=== PATIENT | female | born 1960 | race Caucasian/White ===

== ENCOUNTER → 2018-01-22 | Day surgery (SDC) | payer MEDICARE, MEDICAID ==
[~2018-01-22] MED LIST: LIDOCAINE 1% INJ-PF (10 MG/ML) 30 ML SDV ONE
--- NOTE | 2018-01-22 14:16 | RADIOLOGY REPORT (SQ) ---
EXAM DESCRIPTION: ARTHRO SHOULDER INJECTION; FLUORO/NEEDLE PLACEMENT COMPLETED DATE/TIME: 01/22/2018 1:52 pm REASON FOR STUDY: M25.511 PAIN IN RIGHT SHOULDER M25.511 PAIN IN RIGHT SHOULDER COMPARISON: None. FLUOROSCOPY TIME: 0.3 minutes. 1 images saved to PACS. LIMITATIONS: None. PROCEDURE: Procedure, risks, benefits and alternatives explained to patient who then gave written co nsent. The right shoulder was marked and a time out was called for correct procedure verification. P osterior entry site marked using fluoroscopic guidance. Shoulder prepped and draped using sterile te chnique. Local anesthesia achieved using 1% lidocaine injection. Hypodermic needle introduced into the joint space under direct fluoroscopic visualization. Non-ionic contrast instilled to confirm intr a-articular position. Dilute gadolinium solution then injected. Needle removed and entry site covere d with sterile bandage. No immediate complications noted. TECHNIQUE: Digital images acquired during fluoroscopy and stored on PACS. Patient immediately take n to the MR suite for additional imaging. INJECTION LOCATION: Posterior right shoulder. CONTRAST TYPE AND AMOUNT: 2 mL Isovue-300 and 12 mL Prohance/Saline mixture. IMPRESSION: SUCCESSFUL NEEDLE PLACEMENT AND INJECTION FOR RIGHT SHOULDER MR ARTHROGRAM USING POSTERI OR APPROACH. COMMENT: Quality ID 145: Final reports for procedures using fluoroscopy that document radiation exp osure indices, or exposure time and number of fluorographic images (if radiation exposure indices are not available) TECHNICAL DOCUMENTATION: JOB ID: [id number] [employer]- All Rights Reserved Reading location - IP/workstation name: [email or web address]
--- NOTE | 2018-01-22 14:16 | RADIOLOGY REPORT (SQ) ---
EXAM DESCRIPTION: ARTHRO SHOULDER INJECTION; FLUORO/NEEDLE PLACEMENT COMPLETED DATE/TIME: 01/22/2018 1:52 pm REASON FOR STUDY: M25.511 PAIN IN RIGHT SHOULDER M25.511 PAIN IN RIGHT SHOULDER COMPARISON: None. FLUOROSCOPY TIME: 0.3 minutes. 1 images saved to PACS. LIMITATIONS: None. PROCEDURE: Procedure, risks, benefits and alternatives explained to patient who then gave written co nsent. The right shoulder was marked and a time out was called for correct procedure verification. P osterior entry site marked using fluoroscopic guidance. Shoulder prepped and draped using sterile te chnique. Local anesthesia achieved using 1% lidocaine injection. Hypodermic needle introduced into the joint space under direct fluoroscopic visualization. Non-ionic contrast instilled to confirm intr a-articular position. Dilute gadolinium solution then injected. Needle removed and entry site covere d with sterile bandage. No immediate complications noted. TECHNIQUE: Digital images acquired during fluoroscopy and stored on PACS. Patient immediately take n to the MR suite for additional imaging. INJECTION LOCATION: Posterior right shoulder. CONTRAST TYPE AND AMOUNT: 2 mL Isovue-300 and 12 mL Prohance/Saline mixture. IMPRESSION: SUCCESSFUL NEEDLE PLACEMENT AND INJECTION FOR RIGHT SHOULDER MR ARTHROGRAM USING POSTERI OR APPROACH. COMMENT: Quality ID 145: Final reports for procedures using fluoroscopy that document radiation exp osure indices, or exposure time and number of fluorographic images (if radiation exposure indices are not available) TECHNICAL DOCUMENTATION: JOB ID: [id number] [employer]- All Rights Reserved Reading location - IP/workstation name: [email or web address]
--- NOTE | 2018-01-22 19:57 | RADIOLOGY REPORT (SQ) ---
EXAM DESCRIPTION: MRI RT UPPER JOINT WITH COMPLETED DATE/TIME: 01/22/2018 2:26 pm REASON FOR STUDY: M25.511 PAIN IN RIGHT SHOULDER M25.511 PAIN IN RIGHT SHOULDER COMPARISON: None. TECHNIQUE: Right shoulder images acquired and stored on PACS. Oblique coronal, oblique sagittal, and axial imaging to include fat sensitive sequences as T1, water sensitive sequences as FST2/STIR, and contrast sensitive sequences as FST1. LIMITATIONS: None. FINDINGS: JOINT DISTENTION: Adequate. No loose bodies. BONE MARROW AND CORTEX: Normal allowing for postoperative artifact in the lateral humeral head. AC JOINT: Prior decompression. No subacromial compromise. GLENOHUMERAL JOINT: No focal chondral lesions appreciated. No subluxation or dislocation. ROTATOR CUFF: Limiting artifact. Irregular thinning of the cuff, infraspinatus and posterior aspect of the supraspinatus. Irregular tear is present, most of which looks interstitial. There is a compo nent of full-thickness perforation allowing contrast to extravasates into the subacromial subdeltoid bursa, however. Potential mild loss of muscle bulk in the supraspinatus. Tendinosis and potential p artial tear in the subscapularis. Prominent cystic changes in the lesser tuberosity with some associ ated spurring. LABRUM AND BICEPS LABRAL COMPLEX: No overt SLAP tear or biceps disruption/displacement. INFERIOR LABRAL COMPLEX: Generally intact. ADJACENT SOFT TISSUES: No mass or regional adenopathy detected. OTHER: No other significant finding. IMPRESSION: 1. Recurrent cuff tear. Irregular partial tear with at least some full-thickness perfor ation as above. This involves the infraspinatus and supraspinatus. Probable partial tear in the sub scapularis as well. 2. No SLAP tear or biceps pathology. TECHNICAL DOCUMENTATION: JOB ID: [id number] [employer]- All Rights Reserved Reading location - IP/workstation name: [email or web address]
== END ==
LOC: RAD 12:29
PROVIDERS: ATTEND Orthopaedic Surgery
PROC: BP08ZZZ Plain Radiography of Right Shoulder (ICD-10-PCS; principal; 2018-01-22)
DX: M25.511 Pain in right shoulder (principal)
CPT/HCPCS: 73222; 77002; 23350; A9576; J3490

== ENCOUNTER → 2018-01-22 | Outpatient (CLI) | payer MEDICARE, MEDICAID ==
--- NOTE | 2018-01-25 08:10 | WOMENS IMAGING REPORT ---
EXAM DESCRIPTION: BILAT SCREENING MAMMO W/CAD COMPLETED DATE/TIME: 01/22/2018 12:49 pm REASON FOR STUDY: SCREENING MAMMO Z12.31 ENCNTR SCREEN MAMMOGRAM FOR MALIGNANT NEOPLASM OF DOREEN COMPARISON: 04/17/2015 and 01/23/2014. TECHNIQUE: Standard craniocaudal and mediolateral oblique views of each breast recorded using [employer] acquisition. LIMITATIONS: None. FINDINGS: No masses, calcifications or architectural distortion. No areas of suspicion. Read with the assistance of CAD. .[facility] - R2 Cenova Version 1.3 .[facility] - R2 Cenova Version 1.3 .[facility] - R2 Cenova Version 2.4 .[facility] - R2 Cenova Version 2.4 .[facility] - R2 Lobby Porter Version 9.2 IMPRESSION: NORMAL MAMMOGRAM. BIRADS 1. BREAST DENSITY: b. There are scattered areas of fibroglandular density. BIRAD: 1 NEGATIVE RECOMMENDATION: ROUTINE SCREENING COMMENT: The patient has been notified of the results by letter per SA requirements. Additional no tification policies are in place for contacting patient with suspicious or incomplete findings. Quality ID #225: The [employer] recommends an annual screening mammogram for women aged 40 years or over. This facility utilizes a reminder system to ensure that all patients receive reminder letters, and/or direct phone calls for appointments. This includes reminders for routine scr eening mammograms, diagnostic mammograms, or other Breast Imaging Interventions when appropriate. Th is patient will be placed in the appropriate reminder system. The [employer] (ACR) has developed recommendations for screening MRI of the breast s in certain patient populations, to be used in conjunction with mammography. Breast MRI surveillanc e may be appropriate for women with more than 20% lifetime risk of developing breast cancer as deter mined by genetic testing, significant family history of the disease, or history of mantle radiation f or Hodgkins Disease. ACR Practice Guidelines 2008. TECHNICAL DOCUMENTATION: FINDING NUMBER: (1) ASSESSMENT: (1) JOB ID: [id number] [employer]- All Rights Reserved Reading location - IP/workstation name: [email or web address]
== END ==
LOC: WI 10:47
PROVIDERS: ATTEND Family Medicine
DX: Z12.31 Encounter for screening mammogram for malignant neoplasm of breast (principal)
CPT/HCPCS: 77067

== ENCOUNTER 2018-01-29 12:06 | Emergency (ER) | payer MEDICARE, MEDICAID ==
[2018-01-29 12:16] VITALS: BP 143/83
--- NOTE | 2018-01-29 13:52 | RADIOLOGY REPORT (SQ) ---
"EXAM DESCRIPTION: HIP RIGHT AP/LATERAL COMPLETED DATE/TIME: 01/29/2018 1:15 pm REASON FOR STUDY: pain COMPARISON: None. NUMBER OF VIEWS: Two views. TECHNIQUE: AP pelvis and additional frog-leg view of the right hip. LIMITATIONS: None. FINDINGS: MINERALIZATION: Normal. RIGHT HIP: No fracture or dislocation. No worrisome bone lesions. LEFT HIP: No fracture or dislocation. No worrisome bone lesions. PUBIS AND ISCHIUM: No fracture. PELVIS: No fracture. SACRUM: No fracture or dislocation. No worrisome bone lesions. LOWER LUMBAR SPINE: No fracture or dislocation. No worrisome bone lesions. No significant disc disea se. SOFT TISSUES: No findings. OTHER: No other significant finding. IMPRESSION: NEGATIVE STUDY OF THE RIGHT HIP. NO RADIOGRAPHIC EVIDENCE OF ACUTE INJURY. TECHNICAL DOCUMENTATION: JOB ID: [id number] [employer] | [employer]- All Rights Reserved Reading location - IP/workstation name: [facility]"
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
[2018-01-29] MEDS ORDERED: KETOROLAC TROMETHAMINE 60 MG/2 ML SDV IM ONE (14:42)
[2018-01-29] MEDS ORDERED: ONDANSETRON 4 MG TAB.RAPDIS PO ONE (14:42)
== END 2018-01-29 14:51 | disposition home or self-care (01) ==
LOC: ER 12:06
DX: M25.551 Pain in right hip (principal); R20.8 Other disturbances of skin sensation; I10 Essential (primary) hypertension
CPT/HCPCS: 99283; 96372; J1885; A9270; S0119

== ENCOUNTER 2018-03-26 08:07 | Emergency (ER) | payer MEDICARE, MEDICAID ==
[2018-03-26] MEDS ORDERED: ACETAMINOPHEN 325 MG TABLET PO ONE (08:18)
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
--- NOTE | 2018-03-26 09:06 | RADIOLOGY REPORT (SQ) ---
EXAM DESCRIPTION: FOOT RIGHT COMPLETE COMPLETED DATE/TIME: 03/26/2018 8:53 am REASON FOR STUDY: pain COMPARISON: Right ankle same date NUMBER OF VIEWS: Three views. TECHNIQUE: AP, lateral and oblique radiographic images acquired of the right foot. LIMITATIONS: None. FINDINGS: MINERALIZATION: Normal. BONES: No acute fracture or dislocation. No worrisome bone lesions. JOINTS: No effusions. SOFT TISSUES: No soft tissue swelling. No foreign body. OTHER: No other significant finding. IMPRESSION: NEGATIVE STUDY OF THE RIGHT FOOT. NO RADIOGRAPHIC EVIDENCE OF ACUTE INJURY. TECHNICAL DOCUMENTATION: JOB ID: [id number] [employer]- All Rights Reserved Reading location - IP/workstation name: [email or web address]-[email or web address]
--- NOTE | 2018-03-26 09:06 | RADIOLOGY REPORT (SQ) ---
EXAM DESCRIPTION: ANKLE RIGHT COMPLETE COMPLETED DATE/TIME: 03/26/2018 8:53 am REASON FOR STUDY: pain COMPARISON: None. NUMBER OF VIEWS: Three views. TECHNIQUE: AP, lateral, and oblique radiographic images acquired of the right ankle. LIMITATIONS: None. FINDINGS: MINERALIZATION: Normal. BONES: No acute fracture or dislocation. No worrisome bone lesions. JOINTS: No effusions. SOFT TISSUES: No soft tissue swelling. No foreign body. OTHER: No other significant finding. IMPRESSION: NEGATIVE STUDY OF THE RIGHT ANKLE. NO RADIOGRAPHIC EVIDENCE OF ACUTE INJURY. TECHNICAL DOCUMENTATION: JOB ID: [id number] [employer]- All Rights Reserved Reading location - IP/workstation name: [email or web address]
[2018-03-26 09:35] VITALS: BP 138/74
== END 2018-03-26 09:35 | disposition home or self-care (01) ==
LOC: ER 08:07
DX: G89.29 Other chronic pain (principal); M25.571 Pain in right ankle and joints of right foot; M79.671 Pain in right foot; F17.200 Nicotine dependence, unspecified, uncomplicated; I10 Essential (primary) hypertension
CPT/HCPCS: 99283; 73610; 73630; A9270

== ENCOUNTER 2018-08-01 12:22 | Emergency (ER) | payer MEDICARE, MEDICAID ==
--- NOTE | 2018-08-01 13:54 | ER Document Report ---
HPI - HPI Pain Level: 2 Notes: Patient is a 58-year-old female with a history of chronic pain who presents to the ED complaining of left hand pain status post injury about a week ago. Patient states that she fell on the side of her hand. Patient states that the pain has improved, but states she needs a note as well or something showing that she was here. She denies any drug allergies. Pain does not radiate. She has not noticed any obvious swelling or bruising otherwise. Denies any headache , fever, head injury, neck pain, URI, sore throat, chest pain, palpitations, syncope, cough, shortness of breath, wheeze, dyspnea, abdominal pain, nausea/ vomiting/diarrhea, urinary retention, dysuria, hematuria, numbness/tingling, muscle paralysis/weakness, or rash. - ROS Systems Reviewed and Negative: Yes All other systems reviewed and negative Past Medical History - Social History Smoking Status: Never Smoker Family History: Reviewed & Not Pertinent - Past Medical History Cardiac Medical History: Reports: Hx Hypercholesterolemia, Hx Hypertension Renal/ Medical History: Denies: Hx Peritoneal Dialysis Past Surgical History: Reports: Hx Orthopedic Surgery Vertical Provider Document - CONSTITUTIONAL Agree With Documented VS: Yes Notes: PHYSICAL EXAMINATION: GENERAL: Well-appearing, well-nourished and in no acute distress. LUNGS: Breath sounds clear to auscultation bilaterally and equal. No wheezes rales or rhonchi. HEART: Regular rate and rhythm without murmurs, rubs, gallops. Musculoskeletal: Left hand: No obvious swelling, ecchymosis, erythema, warmth, or deformity. + tenderness to the lateral dorsal hand. No scaphoid tenderness. FROM to passive/active. Strength 5+/5. N/V intact distal. Extremities: No cyanosis, clubbing, or edema b/l. Peripheral pulses 2+. Capillary refill less than 3 seconds. NEUROLOGICAL: Normal speech, normal gait. PSYCH: Normal mood, normal affect. SKIN: Warm, Dry, normal turgor, no rashes or lesions noted. - INFECTION CONTROL TRAVEL OUTSIDE OF THE [place] IN LAST 30 DAYS: No Course - Re-evaluation Re-evalutation: 08/01/18 14:01 Patient is an afebrile, well-hydrated, 58-year-old female who presents to the ED with left hand pain which I suspect to be a sprain/strain vs contusion. Vitals are acceptable without any significant tachycardia, tachypnea, or hypoxia. PE is otherwise unremarkable for any neurovascular compromise, obvious tendon/ligament rupture, obvious fracture/dislocation, septic joint. X- ray was unremarkable for any acute pathology. Patient declined any Tylenol or ice. Patient is nontoxic-appearing. No other labs or imaging warranted at this time based on H&P. Rx for voltaren gel. Conservative measures otherwise for symptoms. Recheck with your PCM in 3-5 days. Consider consult orthopedics. Return to the ED with any worsening/concerning symptoms otherwise as reviewed in discharge. Patient is in agreement. - Vital Signs Vital signs: Temp Pulse Resp BP Pulse Ox 98.2 F 85 16 135/62 H 98 08/01/18 12:54 08/01/18 12:54 08/01/18 12:54 08/01/18 12:54 08/01/18 12:54 Discharge - Discharge Clinical Impression: Left hand pain Condition: Stable Disposition: HOME, SELF-CARE Additional Instructions: Rest, Ice, Compression, Elevation Tylenol/ibuprofen as needed Light stretches daily Strength exercises as able Moist heat and massage may help F/u with your PCP in 3-5 days for a recheck Consider consult(s) with Orthopedics/physical therapy for ongoing/worsening symptoms Return to the ED with any worsening symptoms and/or development of fever, headache, chest pain, palpitations, syncope, shortness of breath, trouble breathing, abdominal pain, n/v/d, muscle weakness/paralysis, numbness/tingling, swelling, redness, or other worsening symptoms that are concerning to you. Prescriptions: Diclofenac Sodium [Voltaren] 4 gm TP QID PRN #100 gel..gm. PRN Reason: Forms: Elevated Blood Pressure Referrals: [facility] [Provider Group] - Follow up as needed
--- NOTE | 2018-08-01 13:59 | RADIOLOGY REPORT (SQ) ---
EXAM DESCRIPTION: HAND LEFT 3 VIEWS COMPLETED DATE/TIME: 08/01/2018 1:48 pm REASON FOR STUDY: lt hand pain s/p injury COMPARISON: None. EXAM PARAMETERS: NUMBER OF VIEWS: Three views. TECHNIQUE: AP, lateral and oblique radiographic images acquired of the left hand. LIMITATIONS: None. FINDINGS: MINERALIZATION: Normal. BONES: Smooth skight to mild periosteal reaction at the base of the third metacarpal bone may be rel ated to prior remote injury. No acute fracture or dislocation. JOINTS: No effusions. SOFT TISSUES: No soft tissue swelling. No foreign body. OTHER: No other significant finding. IMPRESSION: 1. NEGATIVE STUDY OF THE LEFT HAND. TECHNICAL DOCUMENTATION: JOB ID: [id number] [employer]- All Rights Reserved Reading location - IP/workstation name: [email or web address]
[2018-08-01 15:09] VITALS: BP 142/73
== END 2018-08-01 15:33 | disposition home or self-care (01) ==
LOC: ER 12:22
DX: M79.642 Pain in left hand (principal)
CPT/HCPCS: 99283

== ENCOUNTER 2018-12-15 14:30 | Emergency (ER) | payer MEDICARE, MEDICAID ==
[2018-12-15] MEDS ORDERED: ACETAMINOPHEN 325 MG TABLET PO ONE (16:05)
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
--- NOTE | 2018-12-15 16:56 | RADIOLOGY REPORT (SQ) ---
EXAM DESCRIPTION: T SPINE AP/LAT COMPLETED DATE/TIME: 12/15/2018 4:46 pm REASON FOR STUDY: fall heart hurt COMPARISON: None. NUMBER OF VIEWS: Two views. TECHNIQUE: AP and lateral radiographic images acquired of the thoracic spine. LIMITATIONS: None. FINDINGS: MINERALIZATION: Normal. ALIGNMENT: Normal. No scoliosis. VERTEBRAE: No fracture or bone lesion. Maintained height, normal segmentation. DISCS: No significant loss of height or significant narrowing. No large osteophytes. HARDWARE: None in the spine. MEDIASTINUM AND SOFT TISSUES: Normal heart size and aortic contour. No soft tissue abnormality. VISUALIZED LUNG CASTILLO: Clear. OTHER: No other significant finding. IMPRESSION: NO SIGNIFICANT RADIOGRAPHIC FINDING IN THE THORACIC SPINE. TECHNICAL DOCUMENTATION: JOB ID: [id number] [employer]- All Rights Reserved Reading location - IP/workstation name: [email or web address]
--- NOTE | 2018-12-15 16:57 | RADIOLOGY REPORT (SQ) ---
EXAM DESCRIPTION: KNEE LEFT 4 VIEW COMPLETED DATE/TIME: 12/15/2018 4:46 pm REASON FOR STUDY: fall hurt COMPARISON: None. NUMBER OF VIEWS: Four views. TECHNIQUE: AP, lateral, and both oblique radiographic images acquired of the left knee. LIMITATIONS: None. FINDINGS: MINERALIZATION: Normal. BONES: No acute fracture. Medial osteophytes with Niki-Stieda calcification. JOINT: No effusion. SOFT TISSUES: No soft tissue swelling. No radio-opaque foreign body. OTHER: No other significant finding. IMPRESSION: No acute fracture. TECHNICAL DOCUMENTATION: JOB ID: [id number] [employer]- All Rights Reserved Reading location - IP/workstation name: [email or web address]
--- NOTE | 2018-12-15 17:09 | RADIOLOGY REPORT (SQ) ---
EXAM DESCRIPTION: L SPINE WHOLE COMPLETED DATE/TIME: 12/15/2018 4:46 pm REASON FOR STUDY: fall COMPARISON: None. NUMBER OF VIEWS: Five views including obliques. TECHNIQUE: AP, lateral, oblique, and sacral radiographic images acquired of the lumbar spine. LIMITATIONS: None. FINDINGS: MINERALIZATION: Normal. SEGMENTATION: Normal. Transitional anatomy with lumbarization of S1 and a well-developed S1-S2 disc space. ALIGNMENT: Normal. VERTEBRAE: Superior endplate deformity of T12. Wedge deformity of the L2 vertebral body status post kyphoplasty DISCS: Severe multilevel disc degenerative disease. POSTERIOR ELEMENTS: Pedicles and facets are intact. No pars defect or posterior arch defects. HARDWARE: None in the spine. PARASPINAL SOFT TISSUES: Normal. PELVIS: Intact as visualized. No fractures or worrisome bone lesions. SI joints intact. OTHER: There is a rounded calcification in the left upper quadrant measuring approximately 2.9 cm, li jaqueline a large calcified splenic artery aneurysm. IMPRESSION: 1. Superior endplate deformity of T12, age indeterminate. Correlate for acute point te nderness. There is a wedge deformity of the L2 vertebral body status post kyphoplasty. 2. Severe multilevel disc degenerative disease of the lumbar spine. Transitional anatomy is noted w ith lumbarization of S1 and a well-developed S1-S2 disc space. Lumbar disc and neural foraminal path ology be further evaluated MRI if indicated by localizing signs and symptoms. 3. Incidental note of a large rounded calcification in the left upper quadrant, measuring approximat carlyle 2.9 cm and likely a large calcified splenic artery aneurysm. This may be further evaluated by no nemergent CT angiogram. TECHNICAL DOCUMENTATION: JOB ID: [id number]- All Rights Reserved Reading location - IP/workstation name: [email or web address]
--- NOTE | 2018-12-15 19:19 | RADIOLOGY REPORT (SQ) ---
EXAM DESCRIPTION: CT LUMBAR SPINE WITHOUT; CT THORACIC SPINE WITHOUT COMPLETED DATE/TIME: 12/15/2018 6:51 pm REASON FOR STUDY: fall back pain COMPARISON: None. TECHNIQUE: Axial images acquired through the lumbar spine without intravenous contrast. Images revi ewed with lung, soft tissue and bone windows. Reconstructed coronal and sagittal MPR images reviewed . All images stored on PACS. All CT scanners at this facility use dose modulation, iterative reconstruction, and/or weight based d osing when appropriate to reduce radiation dose to as low as reasonably achievable (ALARA). [facility]: Dose Right [facility]: CareDose [facility]: Dose Right [facility]: Teradose 4D [facility]: Smart EGEN RADIATION DOSE: CT Rad equipment meets quality standard of care and radiation dose reduction techniq ues were employed. CTDIvol: 25.9 mGy. DLP: 810 mGy-cm. mGy. LIMITATIONS: None. FINDINGS: SEGMENTATION: There is unusual segmentation with 11 rib-bearing vertebral bodies. 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 There are 6 non rib-bearing lumbar type vertebral b odies with a well-developed disc space between the lowest non rib-bearing lumbar type vertebral body, here labeled S1, and for the purposes of this exam the uppermost lumbar type vertebral body is named L1 and the lower most thoracic vertebral body is named T12. ALIGNMENT: Normal. VERTEBRAL BODIES: Mild superior endplate deformity of T12. Wedge deformity of L2 status post kyphopl asty. DISCS: Severe multilevel disc degenerative disease of the lumbar spine. Mild multilevel disc degener ative disease of the thoracic spine. PEDICLES, TRANSVERSE PROCESSES: No fractures. No dislocation. No acute findings. FACETS, POSTERIOR ELEMENTS: Severe multilevel facet degenerative disease of the lumbar spine. No fra ctures. No dislocation. HARDWARE: None in the spine. VISUALIZED RIBS: No fractures. SOFT TISSUES: There is a 2.3 cm calcified splenic artery aneurysm in the left upper quadrant. OTHER: No other significant finding. IMPRESSION: 1. Mild superior endplate deformity of T12. No evidence of epidural hematoma or other acute associated abnormality. Finding remains age-indeterminate; correlate with point tenderness if present. 2. Wedge deformity of L2 status post kyphoplasty. 3. There is unusual segmentation with 11 rib-bearing vertebral bodies. 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 There are 6 non rib-bearing lumbar type vertebral bodies with a well-deve loped disc space between the lowest non rib-bearing lumbar type vertebral body, here named S1, and fo r the purposes of this exam the uppermost lumbar type vertebral body is named L1 and the lower most t horacic vertebral body is named T12. Complete enumeration and evaluation of segmentation may be acco mplished with additional imaging of the cervical spine if needed for clinical purposes. 4. There is a 2.3 cm calcified splenic artery aneurysm in the left upper quadrant. TECHNICAL DOCUMENTATION: JOB ID: [id number] Quality ID # [id number]: Final reports with documentation of one or more dose reduction techniques (e.g., Au tomated exposure control, adjustment of the mA and/or kV according to patient size, use of iterative reconstruction technique) 2010 [employer] All Rights Reserved Reading location - IP/workstation name: [email or web address]
--- NOTE | 2018-12-15 19:19 | RADIOLOGY REPORT (SQ) ---
EXAM DESCRIPTION: CT LUMBAR SPINE WITHOUT; CT THORACIC SPINE WITHOUT COMPLETED DATE/TIME: 12/15/2018 6:51 pm REASON FOR STUDY: fall back pain COMPARISON: None. TECHNIQUE: Axial images acquired through the lumbar spine without intravenous contrast. Images revi ewed with lung, soft tissue and bone windows. Reconstructed coronal and sagittal MPR images reviewed . All images stored on PACS. All CT scanners at this facility use dose modulation, iterative reconstruction, and/or weight based d osing when appropriate to reduce radiation dose to as low as reasonably achievable (ALARA). [facility]: Dose Right [facility]: CareDose [facility]: Dose Right [facility]: Teradose 4D [facility]: Smart [employer] RADIATION DOSE: CT Rad equipment meets quality standard of care and radiation dose reduction techniq ues were employed. CTDIvol: 25.9 mGy. DLP: 810 mGy-cm. mGy. LIMITATIONS: None. FINDINGS: SEGMENTATION: There is unusual segmentation with 11 rib-bearing vertebral bodies. 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 There are 6 non rib-bearing lumbar type vertebral b odies with a well-developed disc space between the lowest non rib-bearing lumbar type vertebral body, here labeled S1, and for the purposes of this exam the uppermost lumbar type vertebral body is named L1 and the lower most thoracic vertebral body is named T12. ALIGNMENT: Normal. VERTEBRAL BODIES: Mild superior endplate deformity of T12. Wedge deformity of L2 status post kyphopl asty. DISCS: Severe multilevel disc degenerative disease of the lumbar spine. Mild multilevel disc degener ative disease of the thoracic spine. PEDICLES, TRANSVERSE PROCESSES: No fractures. No dislocation. No acute findings. FACETS, POSTERIOR ELEMENTS: Severe multilevel facet degenerative disease of the lumbar spine. No fra ctures. No dislocation. HARDWARE: None in the spine. VISUALIZED RIBS: No fractures. SOFT TISSUES: There is a 2.3 cm calcified splenic artery aneurysm in the left upper quadrant. OTHER: No other significant finding. IMPRESSION: 1. Mild superior endplate deformity of T12. No evidence of epidural hematoma or other acute associated abnormality. Finding remains age-indeterminate; correlate with point tenderness if present. 2. Wedge deformity of L2 status post kyphoplasty. 3. There is unusual segmentation with 11 rib-bearing vertebral bodies. 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 There are 6 non rib-bearing lumbar type vertebral bodies with a well-deve loped disc space between the lowest non rib-bearing lumbar type vertebral body, here named S1, and fo r the purposes of this exam the uppermost lumbar type vertebral body is named L1 and the lower most t horacic vertebral body is named T12. Complete enumeration and evaluation of segmentation may be acco mplished with additional imaging of the cervical spine if needed for clinical purposes. 4. There is a 2.3 cm calcified splenic artery aneurysm in the left upper quadrant. TECHNICAL DOCUMENTATION: JOB ID: [id number] Quality ID # [id number]: Final reports with documentation of one or more dose reduction techniques (e.g., Au tomated exposure control, adjustment of the mA and/or kV according to patient size, use of iterative reconstruction technique) 2010 [employer]- All Rights Reserved Reading location - IP/workstation name: [email or web address]
[2018-12-15] MEDS ORDERED: LIDOCAINE 5% (700 MG) TRANSDERMAL ADH..PATCH TP ONE (19:42)
[2018-12-15 20:13] VITALS: BP 129/60
== END 2018-12-15 20:11 | disposition home or self-care (01) ==
LOC: ER 14:30
DX: S83.92XA Sprain of unspecified site of left knee, initial encounter (principal); M54.5 Low back pain; W18.39XA Other fall on same level, initial encounter; Y93.K1 Activity, walking an animal; M51.37 Other intervertebral disc degeneration, lumbosacral region; I72.8 Aneurysm of other specified arteries; I10 Essential (primary) hypertension
CPT/HCPCS: 99284; 73564; 72110; 72070; 72128; 72131; A9270

== ENCOUNTER 2018-12-17 11:27 | Emergency (ER) | payer MEDICARE, MEDICAID ==
[2018-12-17] MEDS ORDERED: HYDROCODONE/ACETAMINOPHEN 5-325 MG TABLET PO ONE (12:55)
--- NOTE | 2018-12-17 12:59 | ER Document Report ---
ED Medical Screen (RME) - General Chief Complaint: Neck Pain >24hrs old Stated Complaint: FALL/NECK PAIN Time Seen by Provider: 12/17/18 12:51 Primary Care Provider: DURAN THACKER JR, MD [Primary Care Provider] - Follow up as needed Notes: 58-year-old female patient to the emergency department for evaluation of neck pain. Patient was seen here on 15 December. States that she fell and hurt her back. Had CT scan performed of the thoracic and lumbar spine. Now complaining that she did not get her neck looked at and her neck is hurting her worse now. I have greeted and performed a rapid initial assessment of this patient. A comprehensive ED assessment and evaluation of the patient, analysis of test results and completion of the medical decision making process will be conducted by additional ED providers. TRAVEL OUTSIDE OF THE [place] IN LAST 30 DAYS: No - Related Data Allergies/Adverse Reactions: No Known Allergies Allergy (Verified 12/17/18 11:29) Past Medical History - Social History Frequency of alcohol use: Occasional Drug Abuse: None - Past Medical History Cardiac Medical History: Reports: Hx Hypercholesterolemia, Hx Hypertension Neurological Medical History: Reports: Hx Cerebrovascular Accident Endocrine Medical History: Reports: Hx Hypothyroidism Renal/ Medical History: Denies: Hx Peritoneal Dialysis Musculoskeltal Medical History: Reports Hx Arthritis Past Surgical History: Reports: Hx Cholecystectomy, Hx Neurologic Surgery, Hx Orthopedic Surgery - L rotator cuff x3, R rotator cuff x2 Physical Exam - Vital signs Vitals: Temp Pulse Resp BP Pulse Ox 99.1 F 88 20 123/60 100 12/17/18 11:57 12/17/18 11:57 12/17/18 11:57 12/17/18 11:57 12/17/18 11:57 Course - Vital Signs Vital signs: Temp Pulse Resp BP Pulse Ox 99.1 F 88 20 123/60 100 12/17/18 11:57 12/17/18 11:57 12/17/18 11:57 12/17/18 11:57 12/17/18 11:57 Doctor's Discharge - Discharge Referrals: DURAN THACKER JR, MD [Primary Care Provider] - Follow up as needed
--- NOTE | 2018-12-17 13:51 | RADIOLOGY REPORT (SQ) ---
EXAM DESCRIPTION: CERV SP 4 OR 5 VIEWS COMPLETED DATE/TIME: 12/17/2018 1:32 pm REASON FOR STUDY: fall, pain COMPARISON: None. NUMBER OF VIEWS: Five views. TECHNIQUE: AP, lateral, obliques and odontoid radiographic images acquired of the cervical spine. LIMITATIONS: None. FINDINGS: Disc space narrowing and bulky osteophyte formation multiple levels. Spondylolisthesis C2 -3 which is probably degenerative. No prevertebral swelling. IMPRESSION: Malalignment at C2-3 probably degenerative, however recommend follow-up cervical CT. TECHNICAL DOCUMENTATION: JOB ID: [id number] [employer]- All Rights Reserved Reading location - IP/workstation name: [email or web address]
[2018-12-17] MEDS ORDERED: LIDOCAINE 5% (700 MG) TRANSDERMAL ADH..PATCH TP ONE (14:19)
--- NOTE | 2018-12-17 15:01 | RADIOLOGY REPORT (SQ) ---
EXAM DESCRIPTION: CT CERVICAL SPINE WITHOUT COMPLETED DATE/TIME: 12/17/2018 2:46 pm REASON FOR STUDY: neck pain f/u from xray COMPARISON: None. TECHNIQUE: Axial images acquired through the cervical spine without intravenous contrast. Images re viewed with lung, soft tissue and bone windows. Reconstructed coronal and sagittal MPR images review ed. Images stored on PACS. All CT scanners at this facility use dose modulation, iterative reconstruction, and/or weight based d osing when appropriate to reduce radiation dose to as low as reasonably achievable (ALARA). [facility]: Dose Right [facility]: CareDose [facility]: Dose Right [facility]: Teradose 4D [facility]: [facility] RADIATION DOSE: CT Rad equipment meets quality standard of care and radiation dose reduction techniq ues were employed. CTDIvol: 21.1 mGy. DLP: 403 mGy-cm. mGy. LIMITATIONS: None. FINDINGS: ALIGNMENT: Exaggerated kyphosis. Grade 1 spondylolisthesis C2-3 and C3-4. MINERALIZATION: Normal. VERTEBRAL BODIES: No fractures or dislocation. DISCS: Multilevel disc space narrowing with osteophytes. FACETS, LATERAL MASSES, POSTERIOR ELEMENTS: Facet arthropathy. No fractures. No dislocation. No ac devora findings. HARDWARE: None in the spine. VISUALIZED RIBS: No fractures. LUNG APICES AND SOFT TISSUES: 2 pulmonary nodules posterior apex, the largest 5 mm. OTHER: No other significant finding. IMPRESSION: 1. No acute findings in the cervical spine. 2. Incidental pulmonary nodules. TECHNICAL DOCUMENTATION: JOB ID: [id number] Quality ID # [id number]: Final reports with documentation of one or more dose reduction techniques (e.g., Au tomated exposure control, adjustment of the mA and/or kV according to patient size, use of iterative reconstruction technique) 2010 [employer]- All Rights Reserved Reading location - IP/workstation name: [email or web address]
[2018-12-17] MEDS ORDERED: IBUPROFEN 400 MG TABLET PO ONE (15:31)
--- NOTE | 2018-12-17 15:32 | ER Document Report ---
ED General - General Chief Complaint: Neck Pain >24hrs old Stated Complaint: FALL/NECK PAIN Time Seen by Provider: 12/17/18 12:51 Primary Care Provider: DURAN THACKER JR, MD [Primary Care Provider] - Follow up as needed TRAVEL OUTSIDE OF THE [place] IN LAST 30 DAYS: No - HPI Patient complains to provider of: Neck pain Notes: Patient coming in for evaluation of neck pain was seen by the triage provider's notes provided below 58-year-old female patient to the emergency department for evaluation of neck pain. Patient was seen here on 15 December. States that she fell and hurt her back. Had CT scan performed of the thoracic and lumbar spine. Now complaining that she did not get her neck looked at and her neck is hurting her worse now. Upon my evaluation patient is holding phone on her left shoulder next to her ear. Patient did get out the form states neck pain. Did review patient's previous studies. Patient states significant pain in the neck. Prior to my evaluation patient had already had a x-ray performed recommend CT scan patient is yet to get a CAT scan. Denies any new trauma - Related Data Allergies/Adverse Reactions: No Known Allergies Allergy (Verified 12/17/18 11:29) Past Medical History - Social History Smoking Status: Never Smoker Frequency of alcohol use: Occasional Drug Abuse: None Family History: Reviewed & Not Pertinent Patient has suicidal ideation: No Patient has homicidal ideation: No - Past Medical History Cardiac Medical History: Reports: Hx Hypercholesterolemia, Hx Hypertension Neurological Medical History: Reports: Hx Cerebrovascular Accident Endocrine Medical History: Reports: Hx Hypothyroidism Renal/ Medical History: Denies: Hx Peritoneal Dialysis Musculoskeletal Medical History: Reports Hx Arthritis Past Surgical History: Reports: Hx Cholecystectomy, Hx Neurologic Surgery, Hx Orthopedic Surgery - L rotator cuff x3, R rotator cuff x2 Review of Systems - Review of Systems Constitutional: No symptoms reported EENT: Other - Neck pain Cardiovascular: No symptoms reported Respiratory: No symptoms reported Gastrointestinal: No symptoms reported Genitourinary: No symptoms reported Female Genitourinary: No symptoms reported Musculoskeletal: No symptoms reported Skin: No symptoms reported Hematologic/Lymphatic: No symptoms reported Neurological/Psychological: No symptoms reported -: Yes All other systems reviewed and negative Physical Exam - Vital signs Vitals: Temp Pulse Resp BP Pulse Ox 99.1 F 88 20 123/60 100 12/17/18 11:57 12/17/18 11:57 12/17/18 11:57 12/17/18 11:57 12/17/18 11:57 Interpretation: Normal - General General appearance: Appears well, Alert - HEENT Head: Normocephalic, Atraumatic Eyes: Normal Pupils: PERRL Neck: Other - Paraspinal neck pain patient able to turn her neck look up and down use her phone during my evaluation - Respiratory Respiratory status: No respiratory distress Chest status: Nontender Breath sounds: Normal Chest palpation: Normal - Cardiovascular Rhythm: Regular Heart sounds: Normal auscultation Murmur: No - Abdominal Inspection: Normal Distension: No distension Bowel sounds: Normal Tenderness: Nontender Organomegaly: No organomegaly - Back Back: Normal, Nontender - Extremities General upper extremity: Normal inspection, Nontender, Normal color, Normal ROM, Normal temperature General lower extremity: Normal inspection, Nontender, Normal color, Normal ROM, Normal temperature, Normal weight bearing. No: Pillo's sign - Neurological Neuro grossly intact: Yes Cognition: Normal Orientation: AAOx4 [place] Coma Scale Eye Opening: Spontaneous [place] Coma Scale Verbal: Oriented [place] Coma Scale Motor: Obeys Commands [place] Coma Scale Total: 15 Speech: Normal Motor strength normal: LUE, RUE, LLE, RLE Sensory: Normal - Psychological Associated symptoms: Normal affect, Normal mood - Skin Skin Temperature: Warm Skin Moisture: Dry Skin Color: Normal Course - Re-evaluation Re-evalutation: 12/17/18 18:28 CT scans not show any critical pathology. Patient was educated about the pulmonary nodules that were seen in the apices of the lungs. Patient requesting a box of lidocaine patches be prescribed as that she was only prescribed 11. Patient looks to be at pain management as Pr prescription database shows multiple prescriptions for narcotic medications recommend the patient continue her pain management protocol to follow-up with them in the next 24-48 hours. Patient will be discharged home 12/17/18 18:29 - Vital Signs Vital signs: Temp Pulse Resp BP Pulse Ox 98.5 F 84 20 119/70 99 12/17/18 15:44 12/17/18 15:44 12/17/18 11:57 12/17/18 15:44 12/17/18 15:44 Discharge - Discharge Clinical Impression: Neck pain, Pulmonary nodule Condition: Good Disposition: HOME, SELF-CARE Instructions: Neck Injury (Cervical Strain) ([facility]) Additional Instructions: Follow-up with your primary care physician return to ER symptoms worsen at this time your CT scan does not show any fractures of the neck would recommend Tylenol Motrin for pain control you may also use warm packs and ice packs. The CT scan showed pulmonary nodules in the upper part of your lungs otherwise I would recommend following up with your primary care physician for further evaluation of these pulmonary nodules. Your pulmonary nodules are not an emergency but can be evaluated by your primary care physician Prescriptions: Lidocaine [Lidoderm 5% (700 mg) Transdermal Patch] 1 patch TP DAILY #30 adh..patch Referrals: DURAN THACKER JR, MD [Primary Care Provider] - Follow up as needed
[2018-12-17 15:58] VITALS: BP 119/70
== END 2018-12-17 15:58 | disposition home or self-care (01) ==
LOC: ER 11:27
DX: M54.2 Cervicalgia (principal); R91.8 Other nonspecific abnormal finding of lung field; E78.00 Pure hypercholesterolemia, unspecified; E03.9 Hypothyroidism, unspecified; I10 Essential (primary) hypertension; Z86.73 Personal history of transient ischemic attack (TIA), and cerebral infarction without residual deficits; Z90.49 Acquired absence of other specified parts of digestive tract
CPT/HCPCS: 99283; 72050; 72125; A9270 ×2; J3490

== ENCOUNTER 2019-05-27 04:45 | Emergency (ER) | payer MEDICARE, MEDICAID ==
[2019-05-27 04:56] VITALS: BP 121/71
== END 2019-05-27 08:20 | disposition left against medical advice (07) ==
LOC: ER 04:45
DX: Z53.21 Procedure and treatment not carried out due to patient leaving prior to being seen by health care provider (principal)

== ENCOUNTER 2020-03-29 15:38 | Emergency (ER) | payer MEDICARE, MEDICAID ==
[2020-03-29] MEDS ORDERED: PROCHLORPERAZINE EDISYLATE INJ 10 MG/2 ML VIAL IV ONE (15:55)
[2020-03-29] MEDS ORDERED: DIPHENHYDRAMINE HCL 50 MG/ML VIAL IV ONE (15:55)
[2020-03-29] MEDS ORDERED: KETOROLAC TROMETHAMINE INJ/PF 30 MG/1 ML SDV IV ONE (15:55)
--- NOTE | 2020-03-29 15:57 | ER Document Report ---
ED Medical Screen (RME) - General Chief Complaint: Fall Stated Complaint: FALL/RIGHT LEG PAIN Time Seen by Provider: 03/29/20 15:45 Primary Care Provider: BARBARA CAREY FNP-C [Primary Care Provider] - Follow up as needed Mode of Arrival: Wheelchair Information source: Patient Notes: 59-year-old female patient with chronic pain issues presents to the emergency [facility] with a fall injury today. She is also complaining of a headache. She reports history of migraines, states this headache is been intermittent since 1979. She states while she was at the grocery store today she fell forward. She reports pain from her neck down into her back and both legs. She denies any nausea, vomiting, fever or any other symptoms. Patient does see pain management, her last prescription was on 03/02/2019. I have greeted and performed a rapid initial assessment of this patient. A comprehensive ED assessment and evaluation of the patient, analysis of test results and completion of the medical decision making process will be conducted by additional ED providers. I have specifically instructed the patient or family members with the patient to immediately return to any nursing staff should anything change in the patient's condition or with their chief complaint. TRAVEL OUTSIDE OF THE [place] IN LAST 30 DAYS: No - Related Data Allergies/Adverse Reactions: No Known Allergies Allergy (Verified 03/29/20 15:48) Past Medical History - Social History Chew tobacco use (# tins/day): No Frequency of alcohol use: None Drug Abuse: None - Past Medical History Cardiac Medical History: Reports: Hx Hypercholesterolemia, Hx Hypertension Neurological Medical History: Reports: Hx Cerebrovascular Accident Endocrine Medical History: Reports: Hx Hypothyroidism Renal/ Medical History: Denies: Hx Peritoneal Dialysis Musculoskeltal Medical History: Reports Hx Arthritis Past Surgical History: Reports: Hx Cholecystectomy, Hx Neurologic Surgery, Hx Orthopedic Surgery - L rotator cuff x3, R rotator cuff x2 Physical Exam - Vital signs Vitals: Pulse Resp BP Pulse Ox 84 18 107/72 97 03/29/20 15:39 03/29/20 15:39 03/29/20 15:39 03/29/20 15:39 Course - Vital Signs Vital signs: Temp Pulse Resp BP Pulse Ox 98.2 F 84 18 107/72 97 03/29/20 15:45 03/29/20 15:39 03/29/20 15:39 03/29/20 15:39 03/29/20 15:39 Doctor's Discharge - Discharge Referrals: BARBARA CAREY, WELFARE WORKER-C [Primary Care Provider] - Follow up as needed
--- NOTE | 2020-03-29 17:09 | ER Document Report ---
ED General - General Chief Complaint: Fall Stated Complaint: FALL/RIGHT LEG PAIN Time Seen by Provider: 03/29/20 15:45 Primary Care Provider: NGOZI SHAH MD [ACTIVE PROVISIONAL STAFF] - Follow up as needed BARBARA CAREY FNP-C [Primary Care Provider] - Follow up as needed Mode of Arrival: Wheelchair Information source: Patient TRAVEL OUTSIDE OF THE [place] IN LAST 30 DAYS: No - HPI Onset: Other - patient has had headache for several days, chronic back pain for years but back pain acutely worsened today after falling in [employer] Onset/Duration: Gradual Quality of pain: No pain Severity: Moderate Pain Level: 3 Associated symptoms: Nausea, Other - Headache, Acute on Chronic Neck and Back Pain Exacerbated by: Movement Relieved by: Remaining still Similar symptoms previously: Yes - patient has history of Migraines and Chronic Neck and Back Pain Recently seen / treated by doctor: No Notes: 59 year old female with a history of HTN, HLD, Migraine Headaches, Arthritis and Chronic Neck and Back Pain (she is prescribed Oxycodone) here in the ER for evaluation after she fell at [employer]. The patient says she slipped on some water at [employer] and she now has acute on chronic neck and back pain. The patient also is having a typical migraine headache. The patient denies head trauma from her fall. - Related Data Allergies/Adverse Reactions: No Known Allergies Allergy (Verified 03/29/20 15:48) Past Medical History - General Information source: Patient - Social History Smoking Status: Never Smoker Chew tobacco use (# tins/day): No Frequency of alcohol use: Occasional Drug Abuse: None Family History: Reviewed & Not Pertinent Patient has homicidal ideation: No - Past Medical History Cardiac Medical History: Reports: Hx Hypercholesterolemia, Hx Hypertension Neurological Medical History: Reports: Hx Cerebrovascular Accident Endocrine Medical History: Reports: Hx Hypothyroidism Renal/ Medical History: Denies: Hx Peritoneal Dialysis Musculoskeletal Medical History: Reports Hx Arthritis Past Surgical History: Reports: Hx Cholecystectomy, Hx Neurologic Surgery, Hx Orthopedic Surgery - L rotator cuff x3, R rotator cuff x2 Review of Systems - Review of Systems Constitutional: No symptoms reported EENT: No symptoms reported Cardiovascular: No symptoms reported Respiratory: No symptoms reported Gastrointestinal: No symptoms reported Genitourinary: No symptoms reported Female Genitourinary: No symptoms reported Musculoskeletal: Back pain, Neck pain Skin: No symptoms reported Hematologic/Lymphatic: No symptoms reported Neurological/Psychological: Headaches -: Yes All other systems reviewed and negative Physical Exam - Vital signs Vitals: Pulse Resp BP Pulse Ox 84 18 107/72 97 03/29/20 15:39 03/29/20 15:39 03/29/20 15:39 03/29/20 15:39 - Notes Notes: GENERAL: Well-appearing, well-nourished and in no acute distress. HEAD: Atraumatic, normocephalic. EYES: Pupils equal round and reactive to light, extraocular movements intact, sclera anicteric, conjunctiva are normal. ENT: External ears normal, nares patent, oropharynx clear without exudates. Moist mucous membranes. NECK: Normal range of motion, supple without lymphadenopathy or JVD. LUNGS: Breath sounds clear to auscultation bilaterally and equal. No wheezes rales or rhonchi. HEART: Regular rate and rhythm without murmurs, rubs or gallops. ABDOMEN: Soft, nontender, normoactive bowel sounds. No guarding, no rebound. No masses appreciated. EXTREMITIES: Normal range of motion, no pitting or edema. No clubbing or cyanosis. NECK: mild diffuse tenderness with no step offs. BACK: mild diffuse tenderness with no step offs. NEUROLOGICAL: Cranial nerves II through XII grossly intact. Normal speech, normal gait. PSYCH: Normal mood, normal affect. SKIN: Warm, Dry, normal turgor, no rashes or lesions noted. Course - Re-evaluation Re-evalutation: 03/29/20 18:02 The patient's headache improved with treatment in the ER. The patient has acute on chronic neck and back pain from her fall at [employer] today. No imaging needed since patient has no focal pain (it is "all over") and since she can ambulate well and has no bony step offs on exam. Patient is followed at a Pain Clinic. She was told to follow up with her PCP, Pain Clinic, and consider follow up in an Orthopedic Clinic. Patient DCed with short course of Fioricet for headaches. No pain medications prescribed as patient is on Oxycodone at home. - Vital Signs Vital signs: Temp Pulse Resp BP Pulse Ox 98.2 F 84 18 107/72 97 03/29/20 15:45 03/29/20 15:39 03/29/20 15:39 03/29/20 15:39 03/29/20 15:39 Discharge - Discharge Clinical Impression: Migraine Qualifiers: Migraine type: unspecified Status migrainosus presence: without status migrainosus Intractability: not intractable Qualified Code(s): G43.909 - Migraine, unspecified, not intractable, without status migrainosus Back pain Qualifiers: Back pain location: low back pain Chronicity: chronic Back pain laterality: unspecified Sciatica presence: without sciatica Qualified Code(s): M54.5 - Low back pain Condition: Stable Disposition: HOME, SELF-CARE Instructions: Chronic Back Pain ([facility]), Low Back Pain ([facility]), Migraine Headache ([facility]) Additional Instructions: Use Fioricet for headaches along with over the counter medications. Follow up with your primary care doctor, Pain Management, and consider follow up with an Orthopedic Surgeon (Dr. Shah). Prescriptions: Butalb/Acetaminophen/Caffeine [Fioricet (50-325-40 mg) Tablet] 1 tab PO Q8H #15 tab Referrals: BARBARA CAREY, ORDER MANAGER-C [Primary Care Provider] - Follow up as needed NGOZI SHAH MD [ACTIVE PROVISIONAL STAFF] - Follow up as needed
[2020-03-29 18:22] VITALS: BP 110/69
== END 2020-03-29 18:21 | disposition home or self-care (01) ==
LOC: ER 15:38
DX: G43.909 Migraine, unspecified, not intractable, without status migrainosus (principal); M54.5 Low back pain; M79.604 Pain in right leg; M54.2 Cervicalgia; M54.9 Dorsalgia, unspecified; G89.29 Other chronic pain; W19.XXXA Unspecified fall, initial encounter; Y92.512 Supermarket, store or market as the place of occurrence of the external cause; I10 Essential (primary) hypertension; E78.5 Hyperlipidemia, unspecified; Z79.899 Other long term (current) drug therapy
CPT/HCPCS: 99283; 96374; 96375; J1885; J0780

== ENCOUNTER 2020-04-03 12:11 | Emergency (ER) | payer MEDICARE, MEDICAID ==
[2020-04-03 12:23] VITALS: BP 131/55
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
[2020-04-03] MEDS ORDERED: ACETAMINOPHEN 325 MG TABLET PO ONE (14:14)
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
[2020-04-03 16:24] LABS: APPEARANCE,URINE SLIGHTLY-CLOUDY; BILIRUBIN,URINE NEGATIVE (NEGATIVE); COLOR,URINE YELLOW; GLUCOSE, URINE NEGATIVE (NEGATIVE); KETONES,URINE NEGATIVE (NEGATIVE); LEUKOCYTE ESTERASE,URINE LARGE (NEGATIVE); NITRITE,URINE NEGATIVE (NEGATIVE); PROTEIN,URINE NEGATIVE (NEGATIVE); URINE SPECIFIC GRAVITY 1.017; UROBILINOGEN,URINE NEGATIVE mg/dL (<2.0)
== END 2020-04-03 16:46 | disposition home or self-care (01) ==
LOC: ER 12:11
DX: S06.0X1A Concussion with loss of consciousness of 30 minutes or less, initial encounter (principal); N30.01 Acute cystitis with hematuria; R10.9 Unspecified abdominal pain; H53.149 Visual discomfort, unspecified; R51 Headache; Y09 Assault by unspecified means; I10 Essential (primary) hypertension
CPT/HCPCS: 99284; 87086; 81001; 73130; 73110; 70450; 70486; 72125; A9270

== ENCOUNTER 2020-05-09 17:34 | Emergency (ER) | payer MEDICARE, MEDICAID ==
[2020-05-09] MEDS ORDERED: HYDROMORPHONE HCL INJ/PF 2 MG/ML AMPULE IV ONE (17:45)
--- NOTE | 2020-05-09 18:33 | RADIOLOGY REPORT (SQ) ---
EXAM DESCRIPTION: SHOULDER LEFT 2 OR MORE VIEWS IMAGES COMPLETED DATE/TIME: 05/09/2020 5:04 pm REASON FOR STUDY: bed 17 s/p fall tenderness r/o dislocation COMPARISON: None. NUMBER OF VIEWS: Three views. TECHNIQUE: Internal rotation, external rotation, and Y view images acquired of the left shoulder. LIMITATIONS: None. FINDINGS: MINERALIZATION: Normal. BONES: There is anterior inferior dislocation of the right glenohumeral joint. Evaluation of the hum eral head is limited due to overlapping structures. Scapula and clavicle appear intact. VISUALIZED LUNGS AND RIBS: No pneumothorax. No rib fracture. SOFT TISSUES: No radiopaque foreign body. OTHER: No other significant finding. IMPRESSION: Anterior inferior glenohumeral joint dislocation. Evaluation of the humeral head is dean ited due to positioning and overlapping structures. TECHNICAL DOCUMENTATION: JOB ID: [id number] 2010 [employer]- All Rights Reserved Reading location - IP/workstation name: [id number]
[2020-05-09] MEDS ORDERED: PROPOFOL INJ 200 MG/20 ML VIAL IV ONE ×3 (18:43→20:08)
--- NOTE | 2020-05-09 19:40 | ER Document Report ---
ED General - General Chief Complaint: Shoulder Injury Stated Complaint: SHOULDER PAIN Time Seen by Provider: 05/09/20 17:45 TRAVEL OUTSIDE OF THE [place] IN LAST 30 DAYS: No - HPI Notes: Patient is a 59-year-old female presents emergency department for left shoulder pain. She states she had her arms above her head, was moving a refrigerator, when she overextended her shoulder and she believes it dislocated. She denies any fall. No other injury. She has had multiple rotator cuff surgeries in the past, no history of dislocation. - Related Data Allergies/Adverse Reactions: No Known Allergies Allergy (Verified 03/29/20 15:48) Home Medications: norco, fiorcet, solifenacin, synthroid, losartan, protonix, oxy Past Medical History - General Information source: Patient - Social History Smoking Status: Former Smoker Chew tobacco use (# tins/day): No Frequency of alcohol use: Social Drug Abuse: Marijuana Family History: Reviewed & Not Pertinent, Hypertension Patient has homicidal ideation: No - Past Medical History Cardiac Medical History: Reports: Hx Hypercholesterolemia, Hx Hypertension Neurological Medical History: Reports: Hx Cerebrovascular Accident Endocrine Medical History: Reports: Hx Hypothyroidism Renal/ Medical History: Denies: Hx Peritoneal Dialysis Musculoskeletal Medical History: Reports Hx Arthritis Past Surgical History: Reports: Hx Cholecystectomy, Hx Neurologic Surgery, Hx Orthopedic Surgery - L rotator cuff x3, R rotator cuff x2 Review of Systems - Review of Systems Musculoskeletal: See HPI -: Yes All other systems reviewed and negative Physical Exam - Vital signs Vitals: Temp 98.7 F 05/09/20 17:35 - Notes Notes: This is a very disheveled 59-year-old female who appears her stated age in a moderate amount of distress. She is screaming and swearing, holding her left shoulder in a abducted position with flexion at the shoulder. Head is normocephalic and atraumatic, pupils are equal and round, reactive to light. Oral mucosa is moist. Uvula is midline. Heart regular rate and rhythm, lungs are clear auscultation bilaterally. Patient has extensive surgical scarring and tissue overlying the left shoulder. She has no diminished sensation to the left upper extremity, particularly in the distribution of the axillary nerve. Neurovascularly intact distally. Course - Re-evaluation Re-evalutation: 05/09/20 19:38 Patient presents to the emergency department for evaluation. She is a clearly dislocated shoulder. X-rays were obtained, but patient had difficulty staying still. Views were limited. I explained to the patient that I cannot rule out an occult fracture, but sounded unlikely given the mechanism. She was warned about this possibility and asked that we still proceed with reduction. The procedure was explained in great detail, consent was signed and placed on the chart. Procedure note to correlate. Patient was appropriately reduced, placed in a shoulder immobilizer. She is neurovascular intact following. She is already on chronic pain medication. I will refer her onto our on-call orth opedic physician, Dr. Shah. - Vital Signs Vital signs: Temp Pulse Resp BP Pulse Ox 98.7 F 118 H 20 163/128 H 99 05/09/20 17:35 05/09/20 19:17 05/09/20 19:17 05/09/20 19:17 05/09/20 19:17 Procedures - Joint Reduction/Fracture Care Left Shoulder Consent obtained: Yes Conscious sedation: Yes - Propofol 260 mg IV total, given sequentially Pre-procedure NV exam: Yes Post-procedure NV exam: Yes Post-reduction x-ray: Joint reduced Reduction attempts: 3 Complications: No Notes: 05/09/20 19:39 The procedure was explained in great detail. The consent was signed and placed on the chart. The patient was placed on a ash kier boiler, end-tidal CO2 detector, IV fluids, nasal oxygen. Patient was administered propofol. Anna technique, then traction countertraction were attempted. Because of patient's anatomy it was difficult to tell whether or not complete reduction had been obtained. Multiple x-rays were performed. On third attempt the joint was in fact reduced. She is placed on a shoulder immobilizer, neurovascularly intact distally. Discharge - Discharge Clinical Impression: Dislocation of left shoulder joint Qualifiers: Encounter type: initial encounter Qualified Code(s): S43.005A - Unspecified dislocation of left shoulder joint, initial encounter Condition: Stable Disposition: HOME, SELF-CARE Instructions: Shoulder Dislocation ([facility]) Additional Instructions: Wear shoulder immobilizer until follow-up with orthopedics. Use your regular pain medication as prescribed. Return to the emergency department with worsening or new concerning symptoms of any sort. Referrals: NGOZI SHAH MD [ACTIVE PROVISIONAL STAFF] - Follow up as needed
--- NOTE | 2020-05-09 20:05 | RADIOLOGY REPORT (SQ) ---
EXAM DESCRIPTION: SHOULDER LEFT 1 VIEW IMAGES COMPLETED DATE/TIME: 05/09/2020 6:43 pm REASON FOR STUDY: post reduction COMPARISON: Left shoulder radiograph same date NUMBER OF VIEWS: Single-view TECHNIQUE: Internal rotation, external rotation, and Y view images acquired of the left shoulder. LIMITATIONS: None. FINDINGS: MINERALIZATION: Normal. BONES: No definite fracture or cortical irregularity. JOINTS: There appears to be improved alignment at the glenohumeral joint. VISUALIZED LUNGS AND RIBS: No pneumothorax. No rib fracture. SOFT TISSUES: No radiopaque foreign body. OTHER: No other significant finding. IMPRESSION: There appears to be improved alignment at the glenohumeral joint on single radiographic view. No definite fracture. TECHNICAL DOCUMENTATION: JOB ID: [id number] 2010 [employer]- All Rights Reserved Reading location - IP/workstation name: [id number]
[2020-05-09] MEDS ORDERED: NORMAL SALINE 1000 ML 1,000 ML IV ONE (20:20)
[2020-05-09 21:28] VITALS: BP 156/74
== END 2020-05-09 21:18 | disposition home or self-care (01) ==
LOC: ER 17:34
DX: S43.015A Anterior dislocation of left humerus, initial encounter (principal); S43.035A Inferior dislocation of left humerus, initial encounter; X50.9XXA Other and unspecified overexertion or strenuous movements or postures, initial encounter; W19.XXXA Unspecified fall, initial encounter; Y93.89 Activity, other specified; I10 Essential (primary) hypertension; E03.9 Hypothyroidism, unspecified; Z79.899 Other long term (current) drug therapy; Z79.891 Long term (current) use of opiate analgesic
CPT/HCPCS: 99283; 96361; 99152; 96374; 73020; 73030; 23650; J1170; J7030; J2704

== ENCOUNTER 2020-07-28 07:03 | Emergency (ER) | payer MEDICARE, MEDICAID ==
[2020-07-28] MEDS ORDERED: KETOROLAC TROMETHAMINE 60 MG/2 ML SDV IM ONE (09:32)
--- NOTE | 2020-07-28 10:34 | RADIOLOGY REPORT (SQ) ---
EXAM DESCRIPTION: L SPINE WHOLE IMAGES COMPLETED DATE/TIME: 07/28/2020 9:56 am REASON FOR STUDY: low back pain COMPARISON: 12/15/2018 NUMBER OF VIEWS: Five views including obliques. TECHNIQUE: AP, lateral, oblique, and sacral radiographic images acquired of the lumbar spine. LIMITATIONS: None. FINDINGS: MINERALIZATION: Osteopenia. SEGMENTATION: Transitional vertebra. ALIGNMENT: Mild convex right scoliosis. VERTEBRAE: Chronic compression fractures T12 and L1 status post kyphoplasty L1. DISCS: Multilevel disc space narrowing with osteophytes. POSTERIOR ELEMENTS: Pedicles and facets are intact. No pars defect or posterior arch defects. Facet arthropathy is present. HARDWARE: None in the spine. PARASPINAL SOFT TISSUES: Normal. PELVIS: Intact as visualized. No fractures or worrisome bone lesions. SI joints intact. OTHER: No other significant finding. IMPRESSION: Spondylosis. Chronic compression fractures. No acute findings. TECHNICAL DOCUMENTATION: JOB ID: [id number] 2010 [employer]- All Rights Reserved Reading location - IP/workstation name: [email or web address]
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
[2020-07-28 14:35] VITALS: BP 146/72
== END 2020-07-28 11:03 | disposition home or self-care (01) ==
LOC: ER 07:03
DX: M54.5 Low back pain (principal); R51 Headache; E78.00 Pure hypercholesterolemia, unspecified; I10 Essential (primary) hypertension; Z86.73 Personal history of transient ischemic attack (TIA), and cerebral infarction without residual deficits; Z90.49 Acquired absence of other specified parts of digestive tract
CPT/HCPCS: 99284; 96372; 72110; J1885

== ENCOUNTER 2020-08-24 02:38 | Emergency (ER) | payer MEDICARE, MEDICAID ==
--- NOTE | 2020-08-24 03:53 | RADIOLOGY REPORT (SQ) ---
CT face and sinuses without contrast on 08/24/2020 at 3:26 AM CLINICAL INDICATION: Limited range of motion of jaw TECHNIQUE: Multiple axial images are obtained throughout the face/sinuses without the administration of contrast. Sagittal and coronal reformatted images are also performed and reviewed. This exam was performed according to our departmental dose-optimization program, which includes automated exposure control, adjustment of the mA and/or kV according to patient size and/or use of iterative reconstruction technique. Total DLP is 545.23 mGy*cm. COMPARISON: 04/03/2020 FINDINGS: There is mild nasal septal deviation to the left. There is mucosal thickening in the floor of the maxillary sinuses. The paranasal sinuses are otherwise clear. The bilateral TMJs are well located. There is reversal of the normal cervical lordosis in the cervical spine with diffuse degenerative disc disease and grade 1 spondylolisthesis at C2-3 and C3-4 secondary to degenerative facet disease. This appears stable when compared to prior study. There are no acute fracture lines. No other bony or soft tissue abnormality is noted. IMPRESSION: No acute facial fracture.
[2020-08-24 05:58] VITALS: BP 139/54
--- NOTE | 2020-08-24 06:34 | ER Document Report ---
ED General - General Chief Complaint: Jaw Pain Stated Complaint: JAW LOCKED Time Seen by Provider: 08/24/20 06:25 Notes: Patient eloped I did not see the patient TRAVEL OUTSIDE OF THE [place] IN LAST 30 DAYS: No - Related Data Allergies/Adverse Reactions: No Known Allergies Allergy (Verified 07/28/20 07:51) Past Medical History - Social History Smoking Status: Never Smoker Family History: Reviewed & Not Pertinent, Hypertension - Past Medical History Cardiac Medical History: Reports: Hx Hypercholesterolemia, Hx Hypertension Neurological Medical History: Reports: Hx Cerebrovascular Accident Endocrine Medical History: Reports: Hx Hypothyroidism Renal/ Medical History: Denies: Hx Peritoneal Dialysis Musculoskeletal Medical History: Reports Hx Arthritis Past Surgical History: Reports: Hx Cholecystectomy, Hx Neurologic Surgery, Hx Orthopedic Surgery - L rotator cuff x3, R rotator cuff x2 Physical Exam - Vital signs Vitals: Temp Pulse Resp BP Pulse Ox 98.6 F 88 18 130/69 H 98 08/24/20 02:44 08/24/20 02:44 08/24/20 02:44 08/24/20 02:44 08/24/20 02:44 Course - Vital Signs Vital signs: Temp Pulse Resp BP Pulse Ox 97.9 F 83 14 139/54 H 100 08/24/20 05:57 08/24/20 05:57 08/24/20 05:57 08/24/20 05:57 08/24/20 05:57 Discharge - Discharge Clinical Impression: Jaw pain Disposition: [facility]
== END 2020-08-24 06:30 | disposition left against medical advice (07) ==
LOC: ER 02:38
DX: R68.84 Jaw pain (principal); E78.00 Pure hypercholesterolemia, unspecified; I10 Essential (primary) hypertension; Z86.73 Personal history of transient ischemic attack (TIA), and cerebral infarction without residual deficits; Z90.49 Acquired absence of other specified parts of digestive tract
CPT/HCPCS: 70486; 99281